=== PATIENT | female | born 1990 | race Asian ===

== ENCOUNTER 2024-03-22 16:23 | Emergency (ER) | payer BC, SELFPAY ==
--- NOTE | ~2024-03-22 | XR_ITS ---
HISTORY: pain COMPARISON: None TECHNIQUE: 3 views of the thoracic spine were performed FINDINGS: No acute compression fracture is present. Bone mineralization is age-appropriate. No significant degenerative disease. IMPRESSION: Unremarkable radiographic evaluation of the thoracic spine, as detailed above. Reviewed, dictated and finalized at location A. [facility]
[2024-03-22 16:36] VITALS: BP 111/77; PULSE 79; RESP 18; TEMP 36.9; O2SAT 100
--- NOTE | 2024-03-22 16:51 | ED.GENADULT ---
HPI - General Adult General Chief complaint: Unspecified Stated complaint: hip and back pain Time Seen by Provider: 03/22/24 16:51 Source: patient Mode of arrival: ambulatory Limitations: no limitations History of Present Illness HPI narrative: 34-year-old female presents with complaint of mid back pain for the past several days. Patient is visiting here from out of town. Has been helping family members take care of younger children, is caring them around loss. Patient thinks that this is causing her back pain. Is taking ibuprofen and naproxen to treat back pain. Patient is ambulatory with steady gait. No radiation of back pain to lower extremities. No loss of bowel or bladder. Denies weakness, numbness, tingling. Patient is having right hip pain but this is an ongoing issue due to a right labrum tear. Patient states that she is scheduled for surgery in May for labral tear. All systems reviewed and negative except as noted above. Related Data Home Medications Medication Instructions Recorded Confirmed albuterol sulfate 90 mcg/actuation 2 inh inhalation Q4-6H PRN Dyspnea 03/22/24 03/22/24 aerosol inhaler budesonide-formoterol HFA 160 2 puff inhalation BID 03/22/24 03/22/24 mcg-4.5 mcg/actuation aerosol inhaler duloxetine 60 mg capsule,delayed 60 mg PO DAILY 03/22/24 03/22/24 release naproxen 500 mg tablet 500 mg PO DAILY PRN Pain 03/22/24 03/22/24 Allergies Allergy/AdvReac Type Severity Reaction Status Date / Time Penicillins Allergy Rash Verified 03/22/24 16:48 Review of Systems Review of Systems: CONSTITUTIONAL: Denies fever, chills, or sweats. EYES: Denies visual changes, redness, or discharge. ENT: Denies rhinorrhea, congestion, sore throat, or otalgia. CARDIOVASCULAR: Denies chest pain, palpitations, or edema. RESPIRATORY: Denies cough or dyspnea. GASTROINTESTINAL: Denies abdominal pain, nausea, vomiting, or diarrhea. GENITOURINARY: Denies dysuria or hematuria. SKIN: Denies rash or itching. MUSCULOSKELETAL: Reports mid back pain NEUROLOGIC: Denies headache, numbness, or weakness. PSYCHIATRIC: Denies anxiety or depression. All other systems reviewed are negative, except as documented in HPI. [facility] Comments At time of signature, agree with nursing past medical, surgical, social and family history. There is no relevant family history pertinent to the presenting complaint. Exam Narrative: GENERAL: This is a well-nourished, well-developed patient, in no apparent distress. HEAD: normocephalic, atraumatic. EYES: PERRL. Sclera clear/white. Vision is grossly intact. EARS: External ears normal NOSE: External nose normal NECK: Neck supple, non-tender without lymphadenopathy, masses or thyromegaly. CARDIOVASCULAR: Regular rate and rhythm without murmurs, gallops, or rubs. RESPIRATORY: Clear to auscultation. Breath sounds equal bilaterally. No wheezes, rales, or rhonchi. SKIN: warm, Dry, intact with no suspicious lesions or rash, good texture and turgor. NEURO: awake, alert, and oriented to person, place and time. There were no obvious focal neurologic abnormalities. EXTREMITIES: No joint tenderness, effusion, or edema noted. BACK: tenderness on palpation of thoracic spine. Negative straight leg raise. Lower extremity strength 5/5 bilaterally. Course Course Level of Care: Express Care Visit Vital Signs Vital signs: Vital Signs Temperature 36.9 C 03/22/24 16:36 Pulse Rate 79 03/22/24 16:36 Respiratory Rate 18 03/22/24 16:36 Blood Pressure 111/77 03/22/24 16:36 Pulse Oximetry 100 03/22/24 16:36 Oxygen Delivery Room Air 03/22/24 16:36 Temperature 36.9 C 03/22/24 16:36 Pulse Rate 79 03/22/24 16:36 Respiratory Rate 18 03/22/24 16:36 Blood Pressure 111/77 03/22/24 16:36 Pulse Oximetry 100 03/22/24 16:36 Oxygen Delivery Room Air 03/22/24 16:36 Reviewed Medical Decision Making MDM Narrative Medical decision making narrative: x-ray of thoracic spine normal. Discussed results with patient. Prescribed prednisone, methocarbamol to treat thoracic back strain. Recommend she continue taking [id number] ibuprofen. Patient is aware of diagnosis, understands and agrees to treatment plan. Anticipatory guidance given. Patient agrees to follow-up as directed and is aware of reasons to seek care at the emergency department. Portions of this record may have been created with voice recognition software Vital Signs Vital Signs: Vital Signs Temperature 36.9 C 03/22/24 16:36 Pulse Rate 79 03/22/24 16:36 Respiratory Rate 18 03/22/24 16:36 Blood Pressure 111/77 03/22/24 16:36 Pulse Oximetry 100 03/22/24 16:36 Oxygen Delivery Room Air 03/22/24 16:36 Temperature 36.9 C 03/22/24 16:36 Pulse Rate 79 03/22/24 16:36 Respiratory Rate 18 03/22/24 16:36 Blood Pressure 111/77 03/22/24 16:36 Pulse Oximetry 100 03/22/24 16:36 Oxygen Delivery Room Air 03/22/24 16:36 Imaging Data My impression: Agree with radiologist Radiologist's impression: HISTORY: pain COMPARISON: None TECHNIQUE: 3 views of the thoracic spine were performed FINDINGS: No acute compression fracture is present. Bone mineralization is age-appropriate. No significant degenerative disease. IMPRESSION: Unremarkable radiographic evaluation of the thoracic spine, as detailed above. Discharge Plan Discharge Clinical Impression: Strain of muscle and tendon of back wall of thorax, initial encounter Patient Disposition: Home, Self-Care Condition: Stable Instructions: Thoracic Back Strain (ED) Additional Instructions: the x-ray of your thoracic spine was normal today. Continue taking ibuprofen or Tylenol every 6-8 hours as needed for pain. Take medications as prescribed. Methocarbamol as a muscle relaxant may make you drowsy. Do not drive while taking this medication. Alternate between ice and heat. Do stretching exercises daily. Follow-up with your doctor if symptoms are not improving. For any worsening of your back pain go to the ER. Prescriptions: New methocarbamol 500 mg tablet 500 mg PO Q6H PRN (Reason: muscle pain/spasm) Qty: 30 0RF prednisone 20 mg tablet 40 mg PO DAILY 5 Days Qty: 10 0RF No Action albuterol sulfate 90 mcg/actuation HFA aerosol inhaler 2 inh INHALATION Q4-6H PRN (Reason: Dyspnea) naproxen 500 mg tablet 500 mg PO DAILY PRN (Reason: Pain) duloxetine 60 mg capsule,delayed release(DR/EC) 60 mg PO DAILY budesonide-formoterol 160-4.5 mcg/actuation HFA aerosol inhaler 2 puff INHALATION BID Follow-up/Referrals: PHYSICIAN,HEARING [employer] TEACHER [Primary Care Provider] - Time of Disposition: 17:39
== END 2024-03-22 17:41 | disposition home or self-care (01) ==
PROVIDERS: Emergency Provider Nurse Practitioner Family
DX: S29.012A Strain of muscle and tendon of back wall of thorax, initial encounter (principal); Z79.899 Other long term (current) drug therapy; X58.XXXA Exposure to other specified factors, initial encounter
CPT/HCPCS: 72072; 99213; G0463